=== PATIENT | male | born 1935 | race Caucasian/White ===

== ENCOUNTER 2019-12-21 21:00 | Emergency (ER) | payer BC ==
[~2019-12-21] VITALS: Ht 170.2 cm; Wt 82.6 kg
[~2019-12-21 21:00] MED LIST: ASA PO; GLYBERIDE PO; LIP40 PO; ZESTRIL PO
[2019-12-21 21:10] VITALS: BP_SYST 153
--- NOTE | 2019-12-21 21:10 | NUR ---
Patient to ER bed 7 to gown for evaluation. Side rails up. TOURIST GUIDE, BLOOD PRESSURE, AND SPO2 ATTACHED.
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
--- NOTE | 2019-12-21 22:25 | NUR ---
ER Dr. MELGAR at bedside examining patient.
--- NOTE | 2019-12-21 22:45 | NUR ---
LABS DRAWN AND SENT. PT WAITING IN ER LOBBY WITH DAUGHTER FOR DISPOSITION.
[2019-12-21 23:09] LABS: BASOPHILS % (AUTO) 0.5 % (0.0-2.0); EOSINOPHILS # (AUTO) 0.2 K/uL (0.0-0.4); EOSINOPHILS % (AUTO) 2.5 % (0.0-4.0); HEMATOCRIT 41.7 % (36-54); HEMOGLOBIN 13.7 g/dL (14.0-18.0); LYMPHOCYTES # (AUTO) 3.2 K/uL (1.0-5.5); MEAN CORPUSCULAR HEMOGLOBIN 29 pg (27-31); MEAN CORPUSCULAR HGB CONC 33 % (32-36); MEAN CORPUSCULAR VOLUME 87 fL (79.0-98.0); MONOCYTES # (AUTO) 0.6 K/uL (0.0-1.0); MONOCYTES % (AUTO) 6.7 % (1.7-9.3); NEUTROPHILS # (AUTO) 4.6 K/uL (1.8-7.7); NEUTROPHILS % (AUTO) 53.3 % (40.0-70.0); PLATELET COUNT (AUTO) 211 K/uL (130-430); RED BLOOD CELL COUNT(AUTO) 4.78 MIL/uL (4.2-6.2); RED CELL DISTRIBUTION WIDTH 14.4 % (9.0-15.0); WHITE BLOOD COUNT (AUTO) 8.6 K/uL (4.8-10.8)
[2019-12-21 23:12] LABS: ANION GAP 11 (5-15); CALCIUM 9.4 mg/dL (8.4-11.0); CHLORIDE 102 mmol/L (98-107); CREATININE 1.61 mg/dL (0.55-1.30); GLUCOSE 171 mg/dL (70-99); POTASSIUM 4.5 mmol/L (3.5-5.1); SODIUM SERUM 137 mmol/L (136-145); UREA NITROGEN, BLOOD 24 mg/dL (8-21)
[2019-12-21 23:30] VITALS: BP_SYST 153
--- NOTE | 2019-12-21 23:30 | NUR ---
Patient given written and verbal discharge instructions and verbalizes understanding. DR. TALIA GENTILE MD discussed with patient the results and treatment provided. Patient in stable condition. ID arm band removed. Patient educated on pain management and to follow up with PMD. Pain Scale 0/10. Opportunity for questions provided and answered.
== END 2019-12-21 23:30 | disposition home or self-care (01) ==
LOC: SED 21:00
DX: S00.01XA Abrasion of scalp, initial encounter (principal); I12.9 Hypertensive chronic kidney disease with stage 1 through stage 4 chronic kidney disease, or unspecified chronic kidney disease; E11.22 Type 2 diabetes mellitus with diabetic chronic kidney disease; N18.9 Chronic kidney disease, unspecified; W18.39XA Other fall on same level, initial encounter; Y93.89 Activity, other specified; Y92.89 Other specified places as the place of occurrence of the external cause; Y99.8 Other external cause status
CPT/HCPCS: 36415; 70450-TC; 80048; 85025; 93005; 99284